=== PATIENT | female | born 1945 | race Asian ===

== ENCOUNTER 2017-02-15 12:27 | Emergency (ER) | payer OTHER, BC ==
[2017-02-15 12:32] VITALS: BMI 27.8
--- NOTE | 2017-02-15 12:51 | PDOC ---
History of Present Illness - General History Source: Patient - History of Present Illness Initial Comments: 02/15/17 12:53 The patient is a 71-year-old woman with a significant past medical history of hypertension, hypercholesterolemia and diabetes mellitus who was sent to the emergency department by Dr. Camila Diaz to rule out possible cholecystitis. Patient has been complaining of right upper abdominal pain for the past two weeks with associated nausea and vomiting. Allergies: Ciprofloxacin. Shellfish. Past Surgical History: None reported Social History: No tobacco, ETOH and recreational drug use. Pattern Carrier: Dr. Camila Diaz <Nanette Alexis - Last Filed: 02/15/17 15:12> <Anuja Conner - Last Filed: 02/15/17 22:32> - General Chief Complaint: Pain Stated Complaint: ABD PAIN (PCP SENT) Time Seen by Provider: 02/15/17 12:46 Past History <Nanette Alexis - Last Filed: 02/15/17 15:12> - Past Medical History Diabetes: Yes HTN: Yes Hypercholesterolemia: Yes - Psycho/Social/Smoking Cessation Hx Suicidal Ideation: No Smoking History: Never smoked Hx Alcohol Use: No Drug/Substance Use Hx: No Substance Use Type: None <Anuja Conner - Last Filed: 02/15/17 22:32> - Past Medical History Allergies/Adverse Reactions: Allergies Allergy/AdvReac Type Severity Reaction Status Date / Time ciprofloxacin [From Cipro] Allergy Hives Verified 02/15/17 12:32 ciprofloxacin HCl Allergy Hives Verified 02/15/17 12:32 [From Cipro] shellfish derived Allergy Itching Verified 02/15/17 12:33 Home Medications: Ambulatory Orders Amlodipine Besylate [Norvasc -] 10 mg PO HS 02/15/17 Atorvastatin Ca [Lipitor] 10 mg PO HS 02/15/17 Fenofibrate Nanocrystallized [Fenofibrate] 145 mg PO HS 02/15/17 Insulin (Levemir) [Levemir Flexpen -] 25 units SQ HS 02/15/17 Insulin Regular [NOVOLIN R VIAL *IVPUSH / ER / ICU Only*] 8 units SQ TID Metformin HCl 500 mg PO BID 02/15/17 Metoprolol Succinate [Toprol Xl] 100 mg PO DAILY 02/15/17 Olmesartan/Hydrochlorothiazide [Benicar Hct 40-12.5 mg Tablet] 1 each PO DAILY 02/15/17 Saxagliptin HCl [Onglyza] 5 mg PO DAILY 02/15/17 Review of Systems - Review of Systems Able to Perform ROS?: Yes Comments:: 02/15/17 12:53 GENERAL/CONSTITUTIONAL: No fever or chills. No weakness. HEAD, EYES, EARS, NOSE AND THROAT: No change in vision. No ear pain or discharge. No sore throat. CARDIOVASCULAR: No chest pain or shortness of breath. RESPIRATORY: No cough, wheezing, or hemoptysis. GASTROINTESTINAL: Yes: Abdominal Pain. Nausea. Vomiting. No diarrhea or constipation. GENITOURINARY: No dysuria, frequency, or change in urination. MUSCULOSKELETAL: No joint or muscle swelling or pain. No neck or back pain. SKIN: No rash NEUROLOGIC: No headache, vertigo, loss of consciousness, or change in strength/ sensation. ENDOCRINE: No increased thirst. No abnormal weight change. HEMATOLOGIC/LYMPHATIC: No anemia, easy bleeding, or history of blood clots. ALLERGIC/IMMUNOLOGIC: No hives or skin allergy. <Nanette Alexis - Last Filed: 02/15/17 15:12> *Physical Exam - Vital Signs Last Vital Signs Temp Pulse Resp BP Pulse Ox 97.7 F 86 20 183/107 96 02/15/17 12:28 02/15/17 12:28 02/15/17 12:28 02/15/17 12:28 02/15/17 12:28 - Physical Exam Comments: 02/15/17 12:53 GENERAL: Awake, alert, and fully oriented, in no acute distress HEAD: No signs of trauma EYES: PERRLA, EOMI, sclera anicteric, conjunctiva clear ENT: Auricles normal inspection, hearing grossly normal, nares patent, oropharynx clear without exudates. Moist mucosa NECK: Normal ROM, supple, no lymphadenopathy, JVD, or masses LUNGS: Breath sounds equal, clear to auscultation bilaterally. No wheezes, and no crackles HEART: Regular rate and rhythm, normal S1 and S2, no murmurs, rubs or gallops ABDOMEN: Soft, there is some right upper quadrant tenderness to palpation with guarding. Normoactive bowel sounds. No rebound. No masses EXTREMITIES: Normal range of motion, no edema. No clubbing or cyanosis. No cords, erythema, or tenderness NEUROLOGICAL: Cranial nerves II through XII grossly intact. Normal speech <Nanette Alexis - Last Filed: 02/15/17 15:12> - Vital Signs Last Vital Signs Temp Pulse Resp BP Pulse Ox 97.7 F 86 20 183/107 96 02/15/17 12:28 02/15/17 12:28 02/15/17 12:28 02/15/17 12:28 02/15/17 12:28 <Anuja Conner - Last Filed: 02/15/17 22:32> ED Treatment Course - LABORATORY CBC & Chemistry Diagram: 02/15/17 13:05 02/15/17 13:05 - RADIOLOGY Radiograph Interpretation: 02/15/17 15:13 EXAM: US/ABDOMEN US -LIMITED IMPRESSION: Mild hepatomegaly 16 cm with hepatic steatosis and normal gallbladder with no stones. No gallbladder wall thickening and no biliary dilation with common bile duct 0.3 cm and mild parenchymal heterogeneity with normal visualization of the right kidney with no hydronephrosis or stones. Normal region of aorta, vena cava and pancreas There are no signs of cholecystitis or ascites and no biliary dilation <Nanette Alexis - Last Filed: 02/15/17 15:12> - LABORATORY CBC & Chemistry Diagram: 02/15/17 13:05 02/15/17 13:05 <Anuja Conner - Last Filed: 02/15/17 22:32> Medical Decision Making - Medical Decision Making Sono and lab results d/w patient- no acute findings. Stable for DC home with outpatient f/u. <Anuja Conner - Last Filed: 02/15/17 22:32> *DC/Admit/Observation/Transfer - Attestations Scribe Attestion: 02/15/17 12:53 Documentation prepared by Nanette Alexis, acting as medical office technician for Anuja Conner MD. <Nanette Alexis - Last Filed: 02/15/17 15:12> - Discharge Dispostion Admit: No <Anuja Conner - Last Filed: 02/15/17 22:32> Diagnosis at time of Disposition: Abdominal pain Qualifiers: Abdominal location: right upper quadrant Qualified Code(s): R10.11 - Right upper quadrant pain - Discharge Dispostion Disposition: HOME Condition at time of disposition: Stable - Referrals Referrals: Grayson Ortega MD [Primary Care Provider] - - Patient Instructions Printed Discharge Instructions: DI for Abdominal Pain-Adult
[2017-02-15] MEDS ORDERED: morphine CARPU-JECT 2 MG/1 ML DISP.SYRIN IVPUSH ONE (13:12)
[2017-02-15] MEDS ORDERED: SODIUM CHLORIDE 1,000 ML IV STA (13:12)
[2017-02-15] MEDS ORDERED: morphine CARPU-JECT 2 MG/1 ML DISP.SYRIN ONE (13:21)
[2017-02-15 13:22] LABS: URINE APPEARANCE CLEAR; URINE BILIRUBIN NEGATIVE (NEGATIVE); URINE BLOOD NEGATIVE (NEGATIVE); URINE COLOR LTYELLOW; URINE GLUCOSE (UA) NEGATIVE (NEGATIVE); URINE KETONE NEGATIVE (NEGATIVE); URINE LEUK ESTERASE NEGATIVE (NEGATIVE); URINE NITRITE NEGATIVE (NEGATIVE); URINE UROBILINOGEN NEGATIVE E.U./dl (0.2-1.0)
[2017-02-15 13:44] LABS: BASOPHIL 0.5 % (0-2.0); MCH 25.3 pg (25.7-33.7); MCHC 32.3 g/dl (32.0-36.0); MEAN CELL VOLUME 78.3 fl (80-96); MEAN PLT VOLUME 8.7 fl (7.5-11.1); NEUTROPHILS 54.7 % (42.8-82.8); PLATELET COUNT 223 K/MM3 (134-434); RDW 16.2 % (11.6-15.6); WHITE BLOOD COUNT 7.9 K/mm3 (4.0-10.0)
[2017-02-15 14:26] LABS: URINE PROTEIN 2+ (NEGATIVE)
[2017-02-15 14:37] LABS: URINE RBC <1 /hpf (0-3); URINE WBC <1 /hpf (3-5)
[2017-02-15] MEDS ORDERED: DEXTROSE 50%-WATER 50 ML VIAL IVPUSH ONE (15:09)
[2017-02-15] MEDS ORDERED: DEXTROSE 50%-WATER 50 ML DISP.SYRIN ONE (15:10)
[2017-02-15 15:14] VITALS: BP 153/76; PULSE 72; TEMP 98.2
[2017-02-15 15:41] LABS: BILIRUBIN,TOTAL 0.3 mg/dL (0.2-1.0); CALCIUM 9.8 mg/dL (8.5-10.1); CREATININE 1.2 mg/dL (0.55-1.02); TOT PROT 8.3 g/dl (6.4-8.2)
== END 2017-02-15 16:34 | disposition home or self-care (01) ==
LOC: JER 12:27
PROC: 3E033GC Introduction of Other Therapeutic Substance into Peripheral Vein, Percutaneous Approach (ICD-10-PCS; principal; 2017-02-15)
PROC: 3E033NZ Introduction of Analgesics, Hypnotics, Sedatives into Peripheral Vein, Percutaneous Approach (ICD-10-PCS; 2017-02-15)
PROC: 3E0337Z Introduction of Electrolytic and Water Balance Substance into Peripheral Vein, Percutaneous Approach (ICD-10-PCS; 2017-02-15)
DX: R10.11 Right upper quadrant pain (principal)
CPT/HCPCS: 36415; 76705-TC; 80053; 81003; 81015; 83690; 85025; 96361; 96374; 96375; 99284-25

== ENCOUNTER → 2017-03-15 | Day surgery (SDC) | payer OTHER, BC ==
--- NOTE | 2017-03-16 15:34 | PATH ---
Cytology Non-Gynecological Report Patient Name: JOE EDWARDS [facility]. Rec. #: [id number] /Age/Gender: 1945 (Age: 71) / F Account: [id number] Location: RADIOLOGY Taken: 03/15/2017 Received: 03/15/2017 Reported: 03/16/2017 Physicians: Carmine Styles M.D. Specimen(s) Received THYROID FNA RIGHT/ISTHMUS Clinical History Right lobe/isthmus nodule, 1.30 x 0.79 x 1.07 cm Final Diagnosis THYROID GLAND, RIGHT LOBE/ISTHMUS, US GUIDED FINE NEEDLE ASPIRATION BIOPSY: SATISFACTORY FOR EVALUATION. NO MALIGNANT CELLS IDENTIFIED. CONSISTENT WITH NODULAR HYPERPLASIA (BENIGN FOLLICULAR NODULE, BETHESDA CATEGORY II, BENIGN), SEE COMMENT. Comment: The smears and the cell block show clusters of bland appearing follicular epithelial cells arranged in mixed macro- and microfollicles and flat sheets. Colloid is present. Electronically Signed Damián Green M.D. Gross Description Received are four air dried smears, four smears in 95% alcohol, and 20 cc of bloody fluid in formalin. Four diff-quik stained slides, four Pap stained slides and one cell block are made.
== END | disposition home or self-care (01) ==
LOC: JRADIR 09:33
PROVIDERS: ATTEND Internal Medicine Endocrinology, Diabetes & Metabolism
PROC: 0G9H3ZX Drainage of Right Thyroid Gland Lobe, Percutaneous Approach, Diagnostic (ICD-10-PCS; principal; 2017-03-15)
PROC: BG44ZZZ Ultrasonography of Thyroid Gland (ICD-10-PCS; 2017-03-15)
DX: E04.1 Nontoxic single thyroid nodule (principal)
CPT/HCPCS: 76942; 88173; 88305-TC

== ENCOUNTER 2017-04-14 12:50 | Emergency (ER) | payer OTHER, BC ==
[2017-04-14 13:00] VITALS: BMI 27.8
[2017-04-14] MEDS ORDERED: SODIUM CHLORIDE 0.9% 1000 ML INFUS.BAG IV ONE (15:45)
[2017-04-14] MEDS ORDERED: METOCLOPRAMIDE HCL INJECTION 10 MG/2 ML VIAL IVPB ONE (15:45)
[2017-04-14] MEDS ORDERED: ACETAMINOPHEN 325 MG TABLET (FP) PO ONE (15:45)
--- NOTE | 2017-04-14 15:59 | PDOC ---
History of Present Illness - General History Source: Patient Exam Limitations: No Limitations - History of Present Illness Initial Comments: 04/14/17 16:00 The patient is a 71-year-old woman with a significant past medical history of hypertension, hypercholesterolemia and diabetes mellitus who presents to the ED with one week of headache and nausea. Pt states that she has had headaches in the past when her BP is high but they have never lasted this long. She denies any weakness or changes to vision. BP was noted to be high today at 185. Pts creatnine at baseline is 1.34. Pt denies any fever, chills, vomiting, diarrhea, or abdominal pain. Denies any shortness of breath or chest pain. <Antoinette Julien - Last Filed: 04/14/17 17:28> <Gali Clay - Last Filed: 04/14/17 18:43> - General Chief Complaint: Headache Stated Complaint: HEADACHES Past History <Antoinette Julien - Last Filed: 04/14/17 17:28> - Past Medical History Diabetes: Yes (iddm) HTN: Yes Hypercholesterolemia: Yes - Psycho/Social/Smoking Cessation Hx Anxiety: No Suicidal Ideation: No Smoking History: Never smoked Have you smoked in the past 12 months: No Information on smoking cessation initiated: No Hx Alcohol Use: No Drug/Substance Use Hx: No Substance Use Type: None <Gali Clay - Last Filed: 04/14/17 18:43> - Past Medical History Allergies/Adverse Reactions: Allergies Allergy/AdvReac Type Severity Reaction Status Date / Time ciprofloxacin [From Cipro] Allergy Hives Verified 04/14/17 12:52 ciprofloxacin HCl Allergy Hives Verified 04/14/17 12:52 [From Cipro] shellfish derived Allergy Itching Verified 04/14/17 12:52 Home Medications: Ambulatory Orders Amlodipine Besylate [Norvasc -] 10 mg PO HS 02/15/17 Atorvastatin Ca [Lipitor] 10 mg PO HS 02/15/17 Fenofibrate Nanocrystallized [Fenofibrate] 145 mg PO HS 02/15/17 Insulin (Levemir) [Levemir Flexpen -] 25 units SQ HS 02/15/17 Insulin Regular [NOVOLIN R VIAL *IVPUSH / ER / ICU Only*] 8 units SQ TID Metformin HCl 500 mg PO BID 02/15/17 Metoprolol Succinate [Toprol Xl] 100 mg PO DAILY 02/15/17 Olmesartan/Hydrochlorothiazide [Benicar Hct 40-12.5 mg Tablet] 1 each PO DAILY 02/15/17 Saxagliptin HCl [Onglyza] 5 mg PO DAILY 02/15/17 Review of Systems - Review of Systems Able to Perform ROS?: Yes Comments:: 04/14/17 16:32 GENERAL/CONSTITUTIONAL: No fever or chills. No weakness. HEAD, EYES, EARS, NOSE AND THROAT: No change in vision. No ear pain or discharge. No sore throat. CARDIOVASCULAR: No chest pain or shortness of breath. RESPIRATORY: No cough, wheezing, or hemoptysis. GASTROINTESTINAL: No vomiting, diarrhea or constipation. (+)Nausea GENITOURINARY: No dysuria, frequency, or change in urination. MUSCULOSKELETAL: No joint or muscle swelling or pain. No neck or back pain. SKIN: No rash NEUROLOGIC: No vertigo, loss of consciousness, or change in strength/sensation. (+)Headache ENDOCRINE: No increased thirst. No abnormal weight change. HEMATOLOGIC/LYMPHATIC: No anemia, easy bleeding, or history of blood clots. ALLERGIC/IMMUNOLOGIC: No hives or skin allergy. <Antoinette Julien - Last Filed: 04/14/17 17:28> *Physical Exam - Vital Signs Last Vital Signs Temp Pulse Resp BP Pulse Ox 98.0 F 77 18 185/79 100 04/14/17 12:59 04/14/17 12:59 04/14/17 12:59 04/14/17 12:59 04/14/17 12:59 - Physical Exam Comments: 04/14/17 16:34 GENERAL: Awake, alert, and fully oriented, in no acute distress HEAD: No signs of trauma. No temporal tenderness or maxillary sinus tenderness EYES: PERRLA, EOMI, sclera anicteric, conjunctiva clear ENT: Auricles normal inspection, hearing grossly normal, nares patent, oropharynx clear without exudates. Moist mucosa. NECK: Normal ROM, supple, no lymphadenopathy, JVD, or masses LUNGS: Breath sounds equal, clear to auscultation bilaterally. No wheezes, and no crackles HEART: Regular rate and rhythm, normal S1 and S2, no murmurs, rubs or gallops ABDOMEN: Soft, nontender, normoactive bowel sounds. No guarding, no rebound. No masses EXTREMITIES: Normal range of motion, no edema. No clubbing or cyanosis. No cords, erythema, or tenderness NEUROLOGICAL: Cranial nerves intact. 5/5 strength lower and upper extremities. SKIN: Warm, Dry, normal turgor, no rashes or lesions noted <Antoinette Julien - Last Filed: 04/14/17 17:28> - Vital Signs Last Vital Signs Temp Pulse Resp BP Pulse Ox 98.0 F 77 18 185/79 100 04/14/17 12:59 04/14/17 12:59 04/14/17 12:59 04/14/17 12:59 04/14/17 12:59 <Gali Clay - Last Filed: 04/14/17 18:43> ED Treatment Course - LABORATORY CBC & Chemistry Diagram: 04/14/17 15:43 04/14/17 15:43 <Gali Clay - Last Filed: 04/14/17 18:43> Medical Decision Making - Medical Decision Making 04/14/17 15:54 71 yo F wtih h/o HTN DM HLD, here wtih c/o headache. whole head, worse top of head. constant x one week . states has had similar headaches in past with elevated BP, does have nausea, no vomiting. no mod factors. took advil day prior , min relief, did not take any medication today. no cp no sob. no vision changes. no sinus allery or congestion. no f/c. on exam, awake, NAD. PERRL. head atraumatic, no temp artery tenderness. lungs clear bilaterally, heart RRR no mr/g/. abd soft NT ND. ext WWP. nuero exam normal 5.5 all four ext , finger to nose intact. gait normal. sensation intact throughout. plan pain control reassess bp. labs r/o anemia, electrolyte abnormality, iv. reassess. 04/14/17 18:01 pt feeling much better. dc home. folowup with primary doctor. <Gali Clay - Last Filed: 04/14/17 18:43> *DC/Admit/Observation/Transfer - Attestations Scribe Attestion: 04/14/17 16:37 Documentation prepared by Antoinette Julien, acting as medical imaging technologist for Gali Clay MD. <Antoinette Julien - Last Filed: 04/14/17 17:28> <Gali Clay - Last Filed: 04/14/17 18:43> Diagnosis at time of Disposition: Migraine, Hypertension - Discharge Dispostion Disposition: HOME - Referrals Referrals: Grayson Ortega MD [Primary Care Provider] - - Patient Instructions Printed Discharge Instructions: Migraine Headaches (Alternative Therapy), Hypertension (Alternative Therapy) Additional Instructions: follow up with Dr Murrieta next week for repeat blood pressure check. continue taking your blood pressure medication. return for any problems or concerns.
[2017-04-14] MEDS ORDERED: ACETAMINOPHEN 325 MG TABLET (FP) ONE (16:09)
[2017-04-14] MEDS ORDERED: METOCLOPRAMIDE HCL INJECTION 10 MG/2 ML VIAL ONE (16:10)
[2017-04-14 17:34] LABS: URINE APPEARANCE CLEAR; URINE BILIRUBIN NEGATIVE (NEGATIVE); URINE BLOOD NEGATIVE (NEGATIVE); URINE COLOR STRAW; URINE GLUCOSE (UA) NEGATIVE (NEGATIVE); URINE KETONE NEGATIVE (NEGATIVE); URINE LEUK ESTERASE NEGATIVE (NEGATIVE); URINE NITRITE NEGATIVE (NEGATIVE); URINE UROBILINOGEN NEGATIVE E.U./dl (0.2-1.0)
[2017-04-14 17:36] LABS: BASOPHIL 0.4 % (0-2.0); EOSINOPHIL 3.3 % (0-4.5); MCH 25.9 pg (25.7-33.7); MCHC 32.5 g/dl (32.0-36.0); MEAN CELL VOLUME 79.9 fl (80-96); MEAN PLT VOLUME 10.1 fl (7.5-11.1); NEUTROPHILS 57.4 % (42.8-82.8); PLATELET COUNT 219 K/MM3 (134-434); RDW 16.1 % (11.6-15.6); WHITE BLOOD COUNT 9.7 K/mm3 (4.0-10.0)
[2017-04-14 17:39] LABS: URINE PROTEIN 2+ (NEGATIVE)
[2017-04-14 17:42] LABS: URINE WBC 4 /hpf (3-5)
[2017-04-14 18:03] LABS: ALBUMIN 4.3 g/dl (3.4-5.0); BILIRUBIN,TOTAL 0.4 mg/dL (0.2-1.0); CALCIUM 9.4 mg/dL (8.5-10.1); COCKROFT - GAULT 41.276; CREATININE 1.4 mg/dL (0.55-1.02)
[2017-04-14 19:09] VITALS: BP 159/72; PULSE 72; TEMP 98.1
--- NOTE | 2017-04-16 22:42 | EKG ---
Test Reason : Blood Pressure : / mmHG Vent. Rate : 074 BPM Atrial Rate : 074 BPM P-R Int : 146 ms QRS Dur : 076 ms QT Int : 382 ms P-R-T Axes : 053 -59 074 degrees QTc Int : 424 ms POOR DATA QUALITY, INTERPRETATION MAY BE ADVERSELY AFFECTED NORMAL SINUS RHYTHM LEFT AXIS DEVIATION ANTEROSEPTAL INFARCT , AGE UNDETERMINED ABNORMAL ECG WHEN COMPARED WITH ECG OF 19-JAN-2005 07:43, ANTEROSEPTAL INFARCT IS NOW PRESENT CRITERIA FOR INFERIOR INFARCT ARE NO LONGER PRESENT Confirmed by QIAN KHALIL, VIANEY ([id number]) on 04/16/2017 10:41:53 PM Referred By: Confirmed By:VIANEY LAUGHLIN MD
== END 2017-04-14 18:50 | disposition home or self-care (01) ==
LOC: JER 12:50
PROC: 3E033GC Introduction of Other Therapeutic Substance into Peripheral Vein, Percutaneous Approach (ICD-10-PCS; principal; 2017-04-14)
DX: G43.909 Migraine, unspecified, not intractable, without status migrainosus (principal); I10 Essential (primary) hypertension; E11.9 Type 2 diabetes mellitus without complications; Z79.4 Long term (current) use of insulin; Z79.84 Long term (current) use of oral hypoglycemic drugs; E78.00 Pure hypercholesterolemia, unspecified
CPT/HCPCS: 36415; 80053; 81003; 81015; 85025; 93005; 93010; 96374; 99283-25

== ENCOUNTER → 2020-07-21 | Day surgery (SDC) | payer OTHER ==
--- NOTE | 2020-07-22 14:55 | PATH ---
Cytology Non-Gynecological Report Patient Name: JOE EDWARDS [facility]. Rec. #: [id number] /Age/Gender: 1945 (Age: 75) / F Account: [id number] Location: RADIOLOGY INTER Taken: 07/21/2020 Received: 07/21/2020 Reported: 07/22/2020 Physicians: Rupali Robles M.D. Specimen(s) Received THYROID, RIGHT LOBE, FINE NEEDLE ASPIRATION Clinical History Right lobe, 2.66 x 1.2 x 1.80 cm Final Diagnosis THYROID, RIGHT LOBE, FINE NEEDLE ASPIRATION: SATISFACTORY FOR EVALUATION. BETHESDA CLASS II: BENIGN. CYTOLOGIC FINDINGS SHOW A BENIGN FOLLICULAR NODULE WITH FEATURES CONSISTENT WITH CHRONIC LYMPHOCYTIC THYROIDITIS. SMALL FOLLICULAR CELLS WITH METAPLASTIC CHANGES IN A BACKGROUND OF HETEROGENOUS LYMPHOCYTES, LYMPHOHISTIOCYTIC AGGREGATES, AND LYMPHOID TANGLES PRESENT. Comment: Suggest clinical/radiologic and serologic correlation. Electronically Signed Angelina Dumont M.D. Gross Description Received are eight direct smears, four of which are air-dried and Diff-Quik stained, and four of which are alcohol fixed and Pap stained. Also received is 20 ml of bloody formalin from which one cellblock is prepared.
== END | disposition home or self-care (01) ==
LOC: JRADIR 10:16
PROVIDERS: ATTEND Internal Medicine Endocrinology, Diabetes & Metabolism
PROC: 0G9H3ZX Drainage of Right Thyroid Gland Lobe, Percutaneous Approach, Diagnostic (ICD-10-PCS; principal; 2020-07-21)
PROC: BG44ZZZ Ultrasonography of Thyroid Gland (ICD-10-PCS; 2020-07-21)
DX: E04.1 Nontoxic single thyroid nodule (principal)
CPT/HCPCS: 76942; 88173; 88305-TC

== ENCOUNTER 2023-11-07 04:46 | Day surgery (SDC) | payer OTHER ==
[2023-11-03 12:00] VITALS: BMI 26.5
[2023-11-07] MEDS ORDERED: BUPIVACAINE HCL/PF 0.5% (5MG/ML) 10 ML VIAL ONE (15:23)
[2023-11-07] MEDS ORDERED: SEVOFLURANE 250 ML BTL ONE (16:48)
[2023-11-07] MEDS ORDERED: LIDOCAINE HCL/PF 2% SDV 5ML VIAL ONE (16:49)
[2023-11-07] MEDS ORDERED: PROPOFOL 20 ML ONE (16:49)
[2023-11-07] MEDS ORDERED: ONDANSETRON 4 MG/2 ML VIAL ONE (16:49)
[2023-11-07] MEDS ORDERED: DEXAMETHASONE SOD PHOSPHATE 4 MG/1 ML VIAL ONE (16:49)
[2023-11-07] MEDS ORDERED: MIDAZOLAM HCL 2 MG/2 ML SINGLE DOSE VIAL ONE (16:49)
[2023-11-07] MEDS ORDERED: SUGAMMADEX SODIUM 200 MG/2 ML VIAL ONE (16:53)
[2023-11-07] MEDS ORDERED: ceFAZolin SODIUM 1 GM VIAL ONE (17:02)
[2023-11-07] MEDS ORDERED: ceFAZolin SODIUM 1 GM VIAL IVPB ONE (17:03)
[2023-11-07] MEDS ORDERED: BUPIVACAINE HCL/PF 0.5% (5 MG/ML) 30 ML VIAL IJ ONE (17:08)
[2023-11-07] MEDS ORDERED: ACETAMINOPHEN 1000 MG/100 ML BAG IVPB ONE (18:25)
[2023-11-07] MEDS ORDERED: ONDANSETRON 4 MG/2 ML VIAL IVPUSH PRN (18:25)
[2023-11-07] MEDS ORDERED: SODIUM CHLORIDE 1,000 ML IV SCH (18:30)
[2023-11-07] MEDS ORDERED: ACETAMINOPHEN INJECTION 100 ML IVPB ONE (18:54)
[2023-11-08 02:29] VITALS: RESP 18
[2023-11-08] MEDS: oxyCODONE HCL 5 MG TABLET PO PRN ×2 (03:00→13:19)
[2023-11-08] MEDS: cloNIDine HCL 0.1 MG TABLET PO SCH ×2 (05:15→13:22)
[2023-11-08] MEDS ORDERED: PATIENT'S OWN MEDICATION (NON-FORMULARY) (Clonidine Hcl [Clonidine Hcl] 0.2 MG Tablet) PO SCH (06:00)
[2023-11-08] MEDS ORDERED: NIFEdipine E.R 60 MG TABLET PO SCH (07:00)
[2023-11-08] MEDS: LABETALOL HCL 200 MG TABLET (FP) PO SCH ×2 (07:15→13:21)
[2023-11-08] MEDS ORDERED: hydrALAZINE HCL 20 MG/ML VIAL IVPUSH ONE (12:57)
[2023-11-08] MEDS ORDERED: ISOSORBIDE MONONITRATE 30 MG TAB.SR.24H (FP) PO SCH (14:36)
[2023-11-08] MEDS ORDERED: levETIRAcetam 500 MG TABLET (FP) PO SCH (14:45)
[2023-11-08] MEDS ORDERED: FUROSEMIDE 40 MG TABLET (FP) PO SCH (14:45)
[2023-11-08 16:20] VITALS: BP 136/57; PULSE 72; TEMP 98
[2023-11-08 17:11] LABS: BASO % 0.5 % (0-2.0); EOS % 0.7 % (0-4.5); HEMATOCRIT 25.4 % (32.4-45.2); HEMOGLOBIN 8.2 GM/dL (10.7-15.3); LYMPH % 16.3 % (8-40); MCHC 32.3 g/dl (32.0-36.0); MEAN CELL VOLUME 80.7 fl (80-96); MEAN PLT VOLUME 9.4 fl (7.5-11.1); MONO % 6.1 % (3.8-10.2); NEUT % 76.4 % (42.8-82.8); PLATELET COUNT 128 10^3/uL (134-434); RBC 3.15 M/mm3 (3.60-5.2); RDW 17.7 % (11.6-15.6); WHITE BLOOD COUNT 10.1 K/mm3 (4.0-10.0)
[2023-11-08 17:31] LABS: POTASSIUM 4.6 mmol/L (3.5-5.1)
[2023-11-08 17:33] LABS: CALCIUM 8.7 mg/dL (8.5-10.1)
[2023-11-08 17:34] LABS: BLOOD UREA NITROGEN 51.5 mg/dL (7-18)
[2023-11-08 17:37] LABS: CREATININE 3.3 mg/dL (0.55-1.3)
[2023-11-08 17:38] LABS: BILIRUBIN,TOTAL 0.3 mg/dL (0.2-1); TOT PROT 6.6 g/dl (6.4-8.2)
[2023-11-08] MEDS ORDERED: HEPARIN NA (PORCINE) 5,000 UNITS/ML 1ML VIAL SQ SCH (22:00)
[2023-11-08] MEDS ORDERED: FENOFIBRIC ACID 135 MG CAP PO SCH (22:00)
[2023-11-08] MEDS ORDERED: INSULIN (LEVEMIR) 100 UNITS/ML UNITS SQ SCH (22:00)
[2023-11-08] MEDS ORDERED: ATORVASTATIN CA 10 MG TABLET (FP) PO SCH (22:00)
[2023-11-09] MEDS ORDERED: ASPIRIN 81 MG CHEWABLE TABLETS PO SCH (10:00)
== END 2023-11-08 17:30 | disposition home or self-care (01) ==
LOC: JASU-SURG 04:46 → JASUSAT 04:46 → J6S 20:15 → JASU-SURG 20:15 → JASUSAT 11-08 17:30
PROVIDERS: ATTEND Surgery
PROC: 0WUF4JZ Supplement Abdominal Wall with Synthetic Substitute, Percutaneous Endoscopic Approach (ICD-10-PCS; 2023-11-07)
PROC: 0WHG43Z Insertion of Infusion Device into Peritoneal Cavity, Percutaneous Endoscopic Approach (ICD-10-PCS; principal; 2023-11-07 16:30)
DX: I13.2 Hypertensive heart and chronic kidney disease with heart failure and with stage 5 chronic kidney disease, or end stage renal disease (principal); E11.22 Type 2 diabetes mellitus with diabetic chronic kidney disease; N18.6 End stage renal disease; I50.9 Heart failure, unspecified; Z99.2 Dependence on renal dialysis; Z79.4 Long term (current) use of insulin; K42.9 Umbilical hernia without obstruction or gangrene
CPT/HCPCS: 36415; 80053; 82962; 84484; 85025; 93005; 93010; 94760; C1750; C1781; J1644